=== PATIENT | male | born 1980 | race Caucasian/White ===

== ENCOUNTER 2024-04-30 06:17 | Day surgery (SDC) | payer OTHER ==
[~2024-04-30 06:17] MED LIST: Acetaminophen 1,000 MG in Premix Bag 1 BAG IV SCH; ceFAZolin 2 GM in Sodium Chloride 0.9% 50 ML IV ONE
[2024-04-30] MEDS: Lactated Ringers 1,000 ML IV SCH (06:51)
[2024-04-30] MEDS: Pregabalin 75 MG Cap PO SCH (06:52)
[2024-04-30] MEDS ORDERED: Albuterol 0.083% 2.5 MG/3 ML Neb Soln NEB PRN (07:00)
[2024-04-30] MEDS ORDERED: Morphine 2 MG/ML SYRINGE IVPUSH PRN (07:00)
[2024-04-30] MEDS ORDERED: fentaNYL 50 MCG/ML SDV IVPUSH PRN (07:00)
[2024-04-30] MEDS ORDERED: Ondansetron 4 MG/2 ML SDV IVPUSH PRN (07:00)
[2024-04-30] MEDS ORDERED: droPERidol 5 MG/2 ML SDV IVPUSH PRN (07:00)
[2024-04-30] MEDS ORDERED: HYDROmorphone 1 MG/ML Syringe IVPUSH PRN (07:00)
[2024-04-30] MEDS ORDERED: Metoclopramide 10 MG/2 ML SDV IVPUSH PRN (07:00)
[2024-04-30] MEDS ORDERED: Naloxone 0.4 MG/ML SDV IVPUSH PRN (07:00)
[2024-04-30] MEDS ORDERED: fentaNYL 250 MCG/5 ML SDV ONE (07:33)
[2024-04-30] MEDS ORDERED: Propofol 200 MG/20 ML SDV ONE (07:33)
[2024-04-30] MEDS ORDERED: Morphine 10 MG/ML SDV ONE (07:33)
[2024-04-30] MEDS ORDERED: Ropivacaine 0.5% 5 MG/ML 30 ML SDV ONE (07:35)
[2024-04-30] MEDS ORDERED: dexmedeTOMIDine HCl 200 MCG/2 ML SDV ONE (07:35)
[2024-04-30] MEDS ORDERED: Dexamethasone 4 MG/ML 5 ML MDV ONE (07:40)
[2024-04-30] MEDS ORDERED: Rocuronium Bromide 50 MG/5 ML Syringe ONE (07:40)
[2024-04-30] MEDS ORDERED: Ondansetron 4 MG/2 ML SDV ONE (07:40)
[2024-04-30] MEDS ORDERED: Ketorolac 30 MG/ML SDV ONE (07:40)
[2024-04-30] MEDS ORDERED: ceFAZolin 2 GM Vial ONE (07:41)
[2024-04-30] MEDS ORDERED: ceFAZolin 1 GM Vial ONE (07:41)
[2024-04-30] MEDS ORDERED: Famotidine 20 MG/2 ML SDV ONE (07:43)
[2024-04-30] MEDS ORDERED: Lidocaine 2% 11 ML Jelly Filled Syringe ONE (07:57)
[2024-04-30] MEDS ORDERED: Bupivacaine 0.5% 30 ML SDV ONE (08:17)
[2024-04-30] MEDS ORDERED: Sugammadex Sodium 200 MG/2 ML VIAL IV ONE (09:21)
== END 2024-04-30 10:50 | disposition home or self-care (01) ==
LOC: MW.SDS 06:17
PROVIDERS: ATTEND Surgery
DX: K42.9 Umbilical hernia without obstruction or gangrene (principal); I48.91 Unspecified atrial fibrillation; K21.9 Gastro-esophageal reflux disease without esophagitis; G47.30 Sleep apnea, unspecified; E66.9 Obesity, unspecified; F17.220 Nicotine dependence, chewing tobacco, uncomplicated; Z68.39 Body mass index [BMI] 39.0-39.9, adult; Z88.0 Allergy status to penicillin; Z79.899 Other long term (current) drug therapy; Z79.890 Hormone replacement therapy
CPT/HCPCS: 49591; A9270; J0131; J0665; J0690; J1100; J1885; J2270; J2405; J2704; J2795; J3010; J3490; J7120; C1781